=== PATIENT | male | born 1940 | race Caucasian/White ===

== ENCOUNTER 2019-03-10 13:05 | Observation (INO) | payer OTHER ==
[2019-03-10 13:19] VITALS: BMI 29.8
--- NOTE | 2019-03-10 13:26 | PDOC ---
History of Present Illness - General Chief Complaint: Syncope/Near Syncope Stated Complaint: SYNCOPE Time Seen by Provider: 03/10/19 13:11 History Source: Patient Exam Limitations: No Limitations - History of Present Illness Initial Comments: 78 year old male with PMH HTN, HLD, CAD s/p CABG (2003), lung CA s/p lobectomy ( remission since 2002), bladder CA (remission), COPD, DM BIBA to ED for pre- syncopal episode occurring just [employer]. Pt reported he was at Dr. Emmanuel's office, was walking with his walker, felt a lot of shaking of his extremities, felt lightheaded, and fell to the ground, hitting his head on the right side. He denied LOC, vomiting, neck pain, back pain, abdominal pain, chest pain, shortness of breath, palpitations, upper or lower extremity pain. Daughter (RN) at bedside reported in the last 3-[address] Ramirez (Cardio) has been adjusting his BP medications, increasing the ACEI, adding Aldactone, and increasing the Lasix. She reported she is not sure of the exact doses. She reported pt has had two similar episodes of lightheadedness and shaking in the last year, but has never actually fallen. ROS General: denied fever, chills, generalized weakness. HEENT: denied sore throat, rhinorrhea, ear pain. Cardiovascular: denied chest pain, palpitations, syncope, diaphoresis. Respiratory: denied shortness of breath, cough, sputum production, hemoptysis. Gastrointestinal: denied abdominal pain, nausea, vomiting, diarrhea, constipation, blood in stool. Genitourinary: denied dysuria, increased urinary frequency, hematuria, urinary incontinence, flank pain. Back: denied back pain. Musculoskeletal: denied joint pain, muscle pain, joint swelling. Neurological: denied headache, dizziness, numbness, tingling, weakness. Integumentary: denied rash, laceration, abrasion. Hematologic/Lymphatic: denied bruising or bleeding. PE Constitutional: Well-nourished, Well-developed, appearing stated age. Airway: intact Breathing: bilateral breath sounds Circulation: 2+ carotid pulse B/L HEENT: head is normocephalic, atraumatic. No facial bones tenderness to palpation. No marley sign. No raccoon eyes. EOMI. PERRLA. Neck: supple. Full ROM. no midline c-spine tenderness to palpation. No step offs. Cardiovascular: regular heart rhythm. no murmurs. no pericardial friction rub. Chest wall: No tenderness to palpation of anterior chest wall. No deformity to anterior chest wall. Respiratory: clear to auscultation bilaterally. no crackles, rhonchi or wheezing. no stridor. Gastrointestinal: soft, nontender. normal bowel sounds. no rebound, guarding, masses. No ecchymoses. Back: no midline T-spine or L-spine tenderness to palpation. No step offs. Pelvis: lower extremities equal in length without external rotation. No hip tenderness to palpation. Extremities: peripheral pulses intact. 1+ pitting edema to bilateral LE. Neurological: CN 2-12 grossly intact. moves all four extremities. Psych: awake, alert, oriented x3. follows commands. answers questions appropriately. Past History - Past Medical History Allergies/Adverse Reactions: Allergies Allergy/AdvReac Type Severity Reaction Status Date / Time Cephalosporins Allergy Verified 03/10/19 13:19 codeine Allergy Verified 03/10/19 13:19 Home Medications: Ambulatory Orders Atorvastatin Ca [Lipitor] 10 mg PO HS 12/29/13 Budesonide/Formeterol Fumarate [SYMBICORT 160/4.5mcg -] 1 inh PO BID 12/29/13 Escitalopram Oxalate [Lexapro -] 10 mg PO DAILY 12/29/13 Glipizide [Glipizide ER] 5 mg PO BID 12/29/13 Latanoprost 0.005% Eye Drops [Xalatan 0.005% Eye Drops -] 1 drop OU HS 12/29/13 Metoprolol Succinate [Toprol XL -] 0 mg PO DAILY 12/29/13 Ramipril [Altace] 0 mg PO DAILY 12/29/13 Ranolazine [Ranexa] 500 mg PO BID 12/29/13 Tiotropium [place] [Spiriva] 1 inh PO DAILY 12/29/13 Clopidogrel Bisulfate [Clopidogrel] 75 mg PO DAILY #0 01/01/14 Mv-Mn/FA/Lycopene/Lut/Hb#178 [Zay Multi For Men Tablet] 1 each PO DAILY #0 09/09 Dexlansoprazole [Dexilant] 30 mg PO ONCE 09/03/15 Guar Gum [Benefiber] 1 each PO HS 09/03/15 Furosemide [Lasix] 20 mg PO DAILY 03/10/19 Spironolactone [Aldactone] 25 mg PO DAILY 03/10/19 - Psycho Social/Smoking Cessation Hx Smoking History: Former smoker Have you smoked in the past 12 months: No If you are a former smoker, when did you quit?: 1991 Information on smoking cessation initiated: No Hx Alcohol Use: No Drug/Substance Use Hx: No Substance Use Type: None *Physical Exam - Vital Signs Last Vital Signs Temp Pulse Resp BP Pulse Ox 97.8 F 68 18 135/72 94 L 03/10/19 13:11 03/10/19 13:11 03/10/19 13:11 03/10/19 13:11 03/10/19 13:11 ED Treatment Course - LABORATORY CBC & Chemistry Diagram: 03/10/19 13:30 03/10/19 13:30 - RADIOLOGY Radiology Studies Ordered: Category Date Time Status CHEST PA & LAT [RAD] Stat Radiology 03/10/19 13:24 Ordered Medical Decision Making - Medical Decision Making 78 year old male with above PMH presented to ED for pre-syncopal episode associated with fall with head injury. Initial Vital Signs Temp Pulse Resp BP Pulse Ox 97.8 F 68 18 135/72 94 L 03/10/19 13:11 03/10/19 13:11 03/10/19 13:11 03/10/19 13:11 03/10/19 13:11 Afebrile. No tachycardia. No tachypnea. Hypertensive. Borderline hypoxia on room air. Labs ordered: CBC, CMP, troponin, BNP, TSH, UA/UC Imaging ordered: CXR, pelvis XR, CT head, CT cervical spine Medications ordered: none EKG performed at 1310: rate 68, regular rhythm, normal axis, QTc 467, RBBB, no acute ST changes -Similar to EKG performed 09/03/18 - RBBB present. 03/10/19 14:38 Laboratory Last Values WBC 7.8 K/mm3 (4.0-10.0) 03/10/19 13:30 RBC 4.41 M/mm3 (4.00-5.60) 03/10/19 13:30 Hgb 14.2 GM/dL (11.7-16.9) 03/10/19 13:30 Hct 41.4 % (35.4-49) 03/10/19 13:30 MCV 93.9 fl (80-96) 03/10/19 13:30 MCH 32.2 pg (25.7-33.7) 03/10/19 13:30 MCHC 34.3 g/dl (32.0-35.9) 03/10/19 13:30 RDW 14.5 % (11.9-15.9) 03/10/19 13:30 Plt Count 215 K/MM3 (134-434) 03/10/19 13:30 MPV 8.1 fl (7.5-11.1) 03/10/19 13:30 Absolute Neuts (auto) 6.3 K/mm3 (1.5-8.0) 03/10/19 13:30 Neutrophils % 80.7 % (42.8-82.8) 03/10/19 13:30 Lymphocytes % 9.4 % (8-40) 03/10/19 13:30 Monocytes % 7.1 % (3.8-10.2) 03/10/19 13:30 Eosinophils % 2.0 % (0-4.5) 03/10/19 13:30 Basophils % 0.8 % (0-2.0) 03/10/19 13:30 Nucleated RBC % 0 % (0-0) 03/10/19 13:30 PT with INR 12.10 SEC (9.7-13.0) 03/10/19 13:30 INR 1.03 (0.83-1.09) 03/10/19 13:30 PTT (Actin FS) 31.9 SECONDS (25.2-36.5) 03/10/19 13:30 Sodium 139 mmol/L (136-145) 03/10/19 13:30 Potassium 5.3 mmol/L (3.5-5.1) H 03/10/19 13:30 Chloride 105 mmol/L (98-107) 03/10/19 13:30 Carbon Dioxide 28 mmol/L (21-32) 03/10/19 13:30 Anion Gap 6 MMOL/L (8-16) L 03/10/19 13:30 BUN 27.5 mg/dL (7-18) H 03/10/19 13:30 Creatinine 1.3 mg/dL (0.55-1.3) 03/10/19 13:30 Est GFR (CKD-EPI)AfAm 60.15 03/10/19 13:30 Est GFR (CKD-EPI)NonAf 51.90 03/10/19 13:30 Random Glucose 168 mg/dL (74-106) H 03/10/19 13:30 Calcium 9.1 mg/dL (8.5-10.1) 03/10/19 13:30 Phosphorus 3.1 mg/dL (2.5-4.9) 03/10/19 13:30 Magnesium 2.1 mg/dL (1.8-2.4) 03/10/19 13:30 Total Bilirubin 0.5 mg/dL (0.2-1) 03/10/19 13:30 AST 20 U/L (15-37) 03/10/19 13:30 ALT 33 U/L (13-61) 03/10/19 13:30 Alkaline Phosphatase 97 U/L (45-117) 03/10/19 13:30 Troponin I < 0.02 ng/ml (0.00-0.05) 03/10/19 13:30 B-Natriuretic Peptide 189.8 pg/ml (5-450) 03/10/19 13:30 Total Protein 6.8 g/dl (6.4-8.2) 03/10/19 13:30 Albumin 3.7 g/dl (3.4-5.0) 03/10/19 13:30 TSH 3.04 uIU/ml (0.358-3.74) D 03/10/19 13:30 No leukocytosis. No anemia. Mild hyperkalemia, will observe. Troponin undetectable. TSH wnl. 03/10/19 14:43 CXR report: Name: BALWINDER KEMP DEPARTMENT OF RADIOLOGY Phys: Brook Gallegos RESIDENT : 1940 Age: 78 Sex: M [facility] Acct: [id number] Loc: [address] Exam Date: 03/10/19 Status: [place] [id number] Unit Number: [id number] EXAM#: TYPE/EXAM: RESULT: [id number] RAD/CHEST PA LAT Chest X-Ray: Indication: Syncopal left-sided Prior: January 2018 Procedure: PA and lateral view of the chest were performed. Findings: As noted on prior study patient is undergone prior median sternotomy. No bony abnormalities are identified. Cardiac silhouette is at the upper limits of normal.. There is no evidence of pneumothorax, contusion, or pleural effusion. No focal infiltrate or other active pulmonary process is identified. IMPRESSION: No evidence of active pulmonary disease. Loi Villegas M.D. Diplomate, [place] [employer] CAQ, Neuroradiology CAQ, Interventional Radiology 03/10/19 14:52 Urine Test Results Urine Color Dk yellow 03/10/19 14:00 Urine Appearance Clear 03/10/19 14:00 Urine pH 5.5 (5.0-8.0) 03/10/19 14:00 Ur Specific Steen 1.022 (1.010-1.035) 03/10/19 14:00 Urine Protein Trace (NEGATIVE) 03/10/19 14:00 Urine Glucose (UA) Negative (NEGATIVE) 03/10/19 14:00 Urine Ketones Negative (NEGATIVE) 03/10/19 14:00 Urine Blood Negative (NEGATIVE) 03/10/19 14:00 Urine Nitrite Negative (NEGATIVE) 03/10/19 14:00 Urine Bilirubin Negative (NEGATIVE) 03/10/19 14:00 Ur Leukocyte Esterase 1+ (NEGATIVE) H 03/10/19 14:00 WBC 8 Bacteria <1 Asymptomatic Do not suspect UTI 03/10/19 15:13 Pelvis XR report: Name: BALWINDER KEMP DEPARTMENT OF RADIOLOGY Phys: Brook Gallegos RESIDENT : 1940 Age: 78 Sex: M [facility] Acct: [id number] Loc: [address] Exam Date: 03/10/19 Status: [place] [address] Unit Number: [id number] EXAM#: TYPE/EXAM: RESULT: [id number] RAD/PELVIS X-ray pelvis: Indication: Status post fall with pelvic pain Prior: None Procedure: Single view of the pelvis performed. Findings: Single view of the pelvis shows pelvic ring to appear grossly intact with no evidence of fracture or joint diastases. Femoral heads are well-seated within the acetabula. IMPRESSION: No gross fracture or dislocation seen. Loi Villegas M.D. Diplomate, [place] [employer] CAQ, Neuroradiology CAQ, Interventional Radiology Reported By: Loi Villegas MD [id number] 03/10/19 15:36 Pt seen and examined by Dr. Oro, Cardiology, wrote a note and recommended orthostatic vital signs, continue Lipitor 40 qd, Vascepa 2 bid, Plavix 75 qd, Toprol XL 50 qd, Rabexa 1000 bid, hold Lasix 20 qd, ramipril 10 qd and Aldactone 25 qd pending hemodynamic stability 03/10/19 15:51 CT head report and CT cervical spine report: Name: BALWINDER KEMP DEPARTMENT OF RADIOLOGY Phys: Brook Gallegos RESIDENT; Lauren Finn MD : 1940 Age: 78 Sex: M [facility] Acct: [id number] Loc: [address] Exam Date: 03/10/19 Status: [place] [id number] Unit Number: [id number] EXAM#: TYPE/EXAM : RESULT: [id number] CT/HEAD CT WITHOUT CONTRAST [id number] CT/CERVICAL SPINE CT W /O CONTR Status post fall. CT scan of the brain. A noncontrast CT scan of the brain was performed. Compared to prior CT scan of the head dated 12/28/2007 There is generalized volume loss with moderate to marked ventricular dilatation and marked periventricular microvascular ischemic changes are present No mass lesion, gross acute infarct or intracranial hemorrhage are identified. Visualized paranasal sinuses and mastoid air cells are well aerated. Calcification of the cavernous carotid arteries are noted. The calvarium is intact . Impression: Generalized volume loss and marked periventricular chronic microvascular ischemic disease changes. No mass lesion, gross acute infarct or intracranial hemorrhage are identified. The calvarium is intact CT scan of the cervical spine without intravenous contrast Coronal and sagittal reconstruction images were obtained. No gross fracture, subluxation or prevertebral soft tissue swelling is seen. No jumped facets are identified. There is fusion of the posterior elements at C2-C3 level. C3-C4 mild to moderate central disc bulge/ disc osteophyte complex and bilateral uncovertebral hypertrophy moderately narrowing the right foramen. Moderate to marked bilateral facet hypertrophy. Visualized portion of the airway appears unremarkable. No gross enlarged lymph nodes are identified. Lung windows at the thoracic inlet demonstrates COPD changes IMPRESSION: See discussion above The alignment is satisfactory. No gross fracture or subluxation is seen. Fusion of C2 and C3 posterior elements with multilevel bilateral facet hypertrophy. C3-C4 mild to moderate disc osteophyte complex and bilateral uncovertebral hypertrophy moderately narrowing the right foramen. Reported By: Yulissa Bhagat MD 03/10/19 1542 Pt to be admitted for pre-syncope, will have his medications largely changed, would benefit from observation. Discharge - Discharge Information Problems reviewed: Yes Clinical Impression/Diagnosis: Pre-syncope, Fall Condition: Stable - Admission Yes - Follow up/Referral Referrals: ON STAFF,NOT [Non Staff, Medical] - - Patient Discharge Instructions - Post Discharge Activity
--- NOTE | 2019-03-10 13:55 | PDOC ---
Attending Attestation - Resident Resident Name: Brook Gallegos - ED Attending Attestation I have performed the following: I have examined & evaluated the patient, The case was reviewed & discussed with the resident, I agree w/resident's findings & plan - HPI HPI: 03/10/19 13:57 78 YOM with h/o HTN, HLD, CAD s/p 5V CABG, lung ca/ s/p lobectomy presenting with near syncope, at Dr Lezama office for check up where he was walking with walker. +shaking, +dizziness/lightheadedness and fell to the ground, hit his head on right side. No LOC, vomiting, neck pain, back pain, abdominal pain, chest pain, shortness of breath, palpitations, upper or lower extremity pain. Recent adjustments in medications ~3-4 months ago with cards Dr Hung, where he was increased on his JOSE LUIS-I, aldactone added and lasix uptitrated. There have been prior episodes of lightheadedness and shakes, but no falls/frequent falls. - Physicial Exam PE: 03/10/19 13:57 Agree with the resident's HPI and PE as documented in the electronic medical record. NAD, well appearing, EOMI, PERRL, nl conjunctiva, anicteric; neck supple. lungs clear, RRR, abdomen soft nontender. no rebound, guarding. Back nontender. RODRIGUEZ x4, no focal neuro deficits. No peripheral edema. normal color for ethnicity , WW. - Medical Decision Making 03/10/19 13:58 Vital Signs Temp Pulse Resp BP Pulse Ox 97.8 F 68 18 135/72 93 L 03/10/19 13:11 03/10/19 13:11 03/10/19 13:11 03/10/19 13:11 03/10/19 13:19 DDx. syncope: considered interval abnormalities including short QTC or long QT syndrome, WPW, conduction abnormality, [place], ACS, PE, electrolyte disturbances, metabolic derangement. seizure, [employer] lesion, CVA, ICH. vasovagal episode. Neuro exam is nonfocal, not consistent with CVA or primary neurologic abnormality. VS reviewed, wnl. sats borderline at 93%. normal sats. Laboratory results are within normal limits, troponin is negative, ECG is unremarkable similar to previous, follow-up on urine cultures, UA is preliminarily borderline with 1+ leuk esterase and [address] head/C spine to eval for bleed/injury/fx negative for injuries seen by cards here, Dr Oro: 04/21/2018 Echo: Normal LV size with mild LVH and normal fxn, garde II diastolic dysfunction, normal atrial sizes, normal RV size and fxn, tr MR, mild- mod TR, mild NV RVSP 53 mmHg 01/08/2018 No ischemia, LVEF 65% post Lexiscan and 63% rest Likely symptomatic from postural dizziness and polypharmacy also on JOSE LUIS inhibitor Aldactone and Lasix which has been uptitrated were adjusted over the past couple weeks. Baseline diastolic dysfunction based on prior echo records. Does have a history of postural hypotension. Cardiology recommended holding on Lasix ramipril and Aldactone and continue to monitor. Patient may have a risk of CHF and fluid overload admit to tele, near syncope, observation given h/o CHF and now overdiuresis contributing to orthostasis changes 03/10/19 14:55 03/10/19 17:44 Heart Score/ECG Review #1 ECG reviewed & interpreted by me at: 13:10 General ECG Interpretation: Sinus Rhythm, Normal Rate Compared to previous ECG there are: No significant change 03/10/19 13:55 EKG normal sinus rhythm at 68 bpm, wide QRS, RBBB, ST and T wave segments and morphology normal. Nonspecific T wave abnormalities
[2019-03-10 13:59] LABS: BASO % 0.8 % (0-2.0); HEMATOCRIT 41.4 % (35.4-49); HEMOGLOBIN 14.2 GM/dL (11.7-16.9); LYMPH % 9.4 % (8-40); MCH 32.2 pg (25.7-33.7); MCHC 34.3 g/dl (32.0-35.9); MEAN CELL VOLUME 93.9 fl (80-96); MEAN PLT VOLUME 8.1 fl (7.5-11.1); MONO % 7.1 % (3.8-10.2); NEUT % 80.7 % (42.8-82.8); PLATELET COUNT 215 K/MM3 (134-434); RBC 4.41 M/mm3 (4.00-5.60); RDW 14.5 % (11.9-15.9); WHITE BLOOD COUNT 7.8 K/mm3 (4.0-10.0)
[2019-03-10 14:22] LABS: ALBUMIN 3.7 g/dl (3.4-5.0); BILIRUBIN,TOTAL 0.5 mg/dL (0.2-1); BLOOD UREA NITROGEN 27.5 mg/dL (7-18); CALCIUM 9.1 mg/dL (8.5-10.1); CREATININE 1.3 mg/dL (0.55-1.3); POTASSIUM 5.3 mmol/L (3.5-5.1); TOT PROT 6.8 g/dl (6.4-8.2)
[2019-03-10 14:23] LABS: INR 1.03 (0.83-1.09); PROTHROMBIN TIME (PATIENT) 12.1 SEC (9.7-13.0)
[2019-03-10 14:25] LABS: ACTIVATED PTT 31.9 SECONDS (25.2-36.5)
[2019-03-10 14:29] LABS: MAGNESIUM 2.1 mg/dL (1.8-2.4); N-TERMINAL BNP 189.8 pg/ml (5-450); PHOSPHOROUS 3.1 mg/dL (2.5-4.9)
[2019-03-10 14:50] LABS: EPI CELLS 0.8 /HPF (0-5/HPF); HYALINE CASTS 3 /lpf (0-8); PH,URINE 5.5 (5.0-8.0); URINE APPEARANCE CLEAR; URINE BACTERIA 0.3 /hpf (NEGATIVE); URINE BILIRUBIN NEGATIVE (NEGATIVE); URINE COLOR DK YELLOW; URINE GLUCOSE (UA) NEGATIVE (NEGATIVE); URINE KETONE NEGATIVE (NEGATIVE); URINE LEUK ESTERASE 1+ (NEGATIVE); URINE NITRITE NEGATIVE (NEGATIVE); URINE PROTEIN TRACE (NEGATIVE); URINE RBC 2 /hpf (0-4); URINE WBC 8 /hpf (0-5)
--- NOTE | 2019-03-10 15:22 | CON.CARD ---
Consult Consult Specialty:: Cardiology Reason for Consultation:: Near syncope - History of Present Illness Chief Complaint: Near syncope History of Present Illness: 78 YOM with h/o HTN, HLD, CAD s/p CABG (BEST->mLAD, SVG->dRCA, free radial->RPDA ), diastolic dysfunction, amaurosis fugax, lung ca/ s/p lobectomy, CKD, postural dizziness and hypotension presenting with near syncope, at Dr Lezama office for check up where he was walking with walker assistance. +shaking, reports positional dizziness/lightheadedness, legs gave out and fell to the ground, hit his head on right side. No LOC, vomiting, neck pain, back pain, abdominal pain, chest pain, shortness of breath, palpitations, upper or lower extremity pain. Did not eat breakfast today. Last visit with Dr Hung 02/13/2019. - History Source History Provided By: Patient Limitations to Obtaining History: No Limitations - Alcohol/Substance Use Hx Alcohol Use: No - Smoking History Smoking history: Former smoker Have you smoked in the past 12 months: No If you are a former smoker, when did you quit?: 1991 Home Medications - Allergies Allergies/Adverse Reactions: Allergies Allergy/AdvReac Type Severity Reaction Status Date / Time Cephalosporins Allergy Verified 03/10/19 13:19 codeine Allergy Verified 03/10/19 13:19 - Home Medications Home Medications: Ambulatory Orders Atorvastatin Ca [Lipitor] 10 mg PO HS 12/29/13 Budesonide/Formeterol Fumarate [SYMBICORT 160/4.5mcg -] 1 inh PO BID 12/29/13 Escitalopram Oxalate [Lexapro -] 10 mg PO DAILY 12/29/13 Glipizide [Glipizide ER] 5 mg PO BID 12/29/13 Latanoprost 0.005% Eye Drops [Xalatan 0.005% Eye Drops -] 1 drop OU HS 12/29/13 Metoprolol Succinate [Toprol XL -] 0 mg PO DAILY 12/29/13 Ramipril [Altace] 0 mg PO DAILY 12/29/13 Ranolazine [Ranexa] 500 mg PO BID 12/29/13 Tiotropium [place] [Spiriva] 1 inh PO DAILY 12/29/13 Clopidogrel Bisulfate [Clopidogrel] 75 mg PO DAILY #0 01/01/14 Mv-Mn/FA/Lycopene/Lut/Hb#178 [Zay Multi For Men Tablet] 1 each PO DAILY #0 09/09 Dexlansoprazole [Dexilant] 30 mg PO ONCE 09/03/15 Guar Gum [Benefiber] 1 each PO HS 09/03/15 Furosemide [Lasix] 20 mg PO DAILY 03/10/19 Spironolactone [Aldactone] 25 mg PO DAILY 03/10/19 Review of Systems - Review of Systems Neurological: reports: Dizziness, Unsteady Gait Vital Signs: Vital Signs Temperature 97.8 F 03/10/19 13:11 Pulse Rate 68 03/10/19 13:11 Respiratory Rate 18 03/10/19 13:11 Blood Pressure 135/72 03/10/19 13:11 O2 Sat by Pulse Oximetry (%) 93 L 03/10/19 13:19 Constitutional: Yes: No Distress, Calm Neck: Yes: Supple Respiratory: Yes: Regular, CTA Bilaterally Gastrointestinal: Yes: Normal Bowel Sounds, Soft Cardiovascular: Yes: Regular Rate and Rhythm JVD: No Carotid Bruit: No Heart Sounds: Yes: S1, S2 Murmur: Yes: Systolic Murmur, Grade 1 Edema: No - Other Data Labs, Other Data: CBC, BMP 03/10/19 13:30 03/10/19 13:30 INR, PTT INR 1.03 (0.83-1.09) 03/10/19 13:30 Troponin, BNP 03/10/19 03/10/19 13:30 13:30 Troponin I < 0.02 B-Natriuretic Peptide 189.8 Troponin, BNP 03/10/19 03/10/19 13:30 13:30 Troponin I < 0.02 B-Natriuretic Peptide 189.8 NSR @ 68 LAD, RBBB Ejection Fraction %: LVEF > or = 40 % Imaging - Results Chest X-ray: Report Reviewed (NAD) Problem List - Problems (1) Postural hypotension Code(s): I95.1 - ORTHOSTATIC HYPOTENSION (2) Coronary artery disease Code(s): I25.10 - ATHSCL HEART DISEASE OF [place] CORONARY ARTERY W/O ANG PCTRS Qualifiers: Coronary Disease-Associated Artery/Lesion type: [place] artery [place] vs. transplanted heart: [place] heart Associated angina: without angina Qualified Code(s): I25.10 - Atherosclerotic heart disease of [place] coronary artery without angina pectoris (3) Diastolic dysfunction with chronic heart failure Code(s): I50.32 - CHRONIC DIASTOLIC (CONGESTIVE) HEART FAILURE (4) S/P CABG (coronary artery bypass graft) Code(s): Z95.1 - PRESENCE OF AORTOCORONARY BYPASS GRAFT (5) Pre-syncope Code(s): R55 - SYNCOPE AND COLLAPSE (6) Hypertensive heart disease Code(s): I11.9 - HYPERTENSIVE HEART DISEASE WITHOUT HEART FAILURE (7) Hyperlipidemia Code(s): E78.5 - HYPERLIPIDEMIA, UNSPECIFIED Qualifiers: Hyperlipidemia type: pure hypercholesterolemia Qualified Code(s): E78.00 - Pure hypercholesterolemia, unspecified; E78.0 - Pure hypercholesterolemia (8) CKD (chronic kidney disease) Code(s): N18.9 - CHRONIC KIDNEY DISEASE, UNSPECIFIED Qualifiers: Chronic kidney disease stage: stage 2 (mild) Qualified Code(s): N18.2 - Chronic kidney disease, stage 2 (mild) Assessment/Plan 04/21/2018 Echo: Normal LV size with mild LVH and normal fxn, garde II diastolic dysfunction, normal atrial sizes, normal RV size and fxn, tr MR, mild- mod TR, mild [place] RVSP 53 mmHg 01/08/2018 No ischemia, LVEF 65% post Lexiscan and 63% rest 1. Postural dizziness and hypotension 2. LV diastolic dysfunxtion 3. CAD s/p CABG 4. Labile HTN with h/o postural hypotension 5. Type 2 DM 6. Hyperlipidemia 7. CKD 8. H/o amaurosis fugax 9. H/o lung ca s/p resection 10. H/o GERD 11. Mild ao dilatation 3.8 cm P:1. Check orthostatic VS 2. Continue Lipitor 40 qd, Vascepa 2 bid, Plavix 75 qd, Toprol XL 50 qd, Ranexa 1000 bid and ramipril 10 qd, hold Lasix 20 qd and Aldactone 25 qd pending resolution of orthostasis 3. PT and gait training 4. Thank you for consultative opportunity
--- NOTE | 2019-03-10 17:49 | HP ---
<Bette Blevins - Last Filed: 03/10/19 18:20> Hospitalist Medicine Admission 78 y/o M with h/o HTN, HLD, COPD (not on home 02), CAD s/p CABG (BEST->mLAD, SVG ->dRCA, free radial->RPDA. on plavix, no stents), diastolic dysfunction, amaurosis fugax, lung ca/ s/p lobectomy, bladder CA- in remission, CKD, DM2, postural dizziness and hypotension presenting with near syncope, at Dr Lezama office. States that at 11AM, he was ambulating from his car into the office, when he felt uneasy. However it was when he was walking to the elevator in the building, using his walker, when he knew he "was going to go down." Was witnessed by the nurse. States that he hit the R side of his head, but is unsure whether he had LOC. At the time, had a shaking sensation in his extremities, was not a/w incontinence, palpitations, chest pain, nausea, or other sx. Was helped up, drank water and came to the ED for further evaluation via ambulance. Had recent changes in his cardiac meds. Last visit with Dr Ramirez 02/13/2019. Denies vomiting, neck pain, back pain, abdominal pain, chest pain, shortness of breath, palpitations, upper or lower extremity pain. No recent illnesses. Per family, these episodes occur frequently at home, and pt improves with leg elevation, salted chips. Seen in ED by Dr. Oro. PMH: as above PsxH: as above, bladder sx meds: [facility] only has aldactone picked up recently. rest meds per cardio, others need verification. 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 used to smoke 2-3 ppd but quit many yrs ago. Does not use home 02. Used to drink heavily in past. no drug use. lives independently near family. does ADL's on own and uses a walker to ambulate. Allergies Cephalosporins Allergy (Verified 03/10/19 13:19) codeine Allergy (Verified 03/10/19 13:19) HOME MEDICATIONS: Home Medications Medication Instructions Recorded Atorvastatin Ca [Lipitor] 10 mg PO HS 12/29/13 Budesonide/Formeterol Fumarate 1 inh PO BID 12/29/13 [SYMBICORT 160/4.5mcg -] Escitalopram Oxalate [Lexapro -] 10 mg PO DAILY 12/29/13 Glipizide [Glipizide ER] 5 mg PO BID 12/29/13 Latanoprost 0.005% Eye Drops 1 drop OU HS 12/29/13 [Xalatan 0.005% Eye Drops -] Metoprolol Succinate [Toprol XL -] 0 mg PO DAILY 12/29/13 Ramipril [Altace] 0 mg PO DAILY 12/29/13 Ranolazine [Ranexa] 500 mg PO BID 12/29/13 Tiotropium [place] [Spiriva] 1 inh PO DAILY 12/29/13 Clopidogrel Bisulfate [Clopidogrel] 75 mg PO DAILY #0 01/01/14 Mv-Mn/FA/Lycopene/Lut/Hb#178 [Zay 1 each PO DAILY #0 01/01/14 Multi For Men Tablet] Dexlansoprazole [Dexilant] 30 mg PO ONCE 09/03/15 Guar Gum [Benefiber] 1 each PO HS 09/03/15 Furosemide [Lasix] 20 mg PO DAILY 03/10/19 Spironolactone [Aldactone] 25 mg PO DAILY 03/10/19 PHYSICAL EXAMINATION Vital Signs - 24 hr 03/10/19 03/10/19 03/10/19 13:11 13:19 17:18 Temperature 97.8 F Pulse Rate 68 Pulse Rate [ 74 Apical] Respiratory 18 18 Rate Blood Pressure 135/72 Blood Pressure 150/73 [Left Arm] O2 Sat by Pulse 94 L 93 L 94 L Oximetry (%) GENERAL: pleasant, in NAD. resting in bed HEENT: NCAT, PERRLA neck: supple. no JVD noted cardio: S1, S2 RRR. no r/g. +systolic murmur appreciated, heard at LUSB pulm: decreased breath sounds. no accessory m usage abdomen: soft, nondistended, nontender LE: 2+ pulses, 1+ pitting edema. neuro: intelligence research specialist 2-12 grossly intact Laboratory Tests 03/10/19 03/10/19 03/10/19 13:30 13:30 13:30 WBC 7.8 Hgb 14.2 Hct 41.4 Plt Count 215 PT with INR 12.10 INR 1.03 PTT (Actin FS) 31.9 Sodium 139 Potassium 5.3 H Chloride 105 Carbon Dioxide 28 Anion Gap 6 L BUN 27.5 H Creatinine 1.3 Random Glucose 168 H Calcium 9.1 Urine Casts (Auto) U Epithel Cells (Auto) 03/10/19 03/10/19 13:30 14:00 Anion Gap Calcium Troponin I < 0.02 Urine Color Dk yellow Urine Appearance Clear Urine pH 5.5 Ur Specific University 1.022 Urine Protein Trace Urine Glucose (UA) Negative Urine Ketones Negative Urine Blood Negative Urine Nitrite Negative Urine Bilirubin Negative Urine Urobilinogen 1.0 Ur Leukocyte Esterase 1+ H Urine WBC (Auto) 8 Urine RBC (Auto) 2 Urine Casts (Auto) 3 U Epithel Cells (Auto) 0.8 Urine Bacteria (Auto) 0.3 Per cardio: NSR @ 68 LAD, RBBB. qtc 467ms Ejection Fraction %: LVEF > or = 40 % 04/21/2018 Echo: Normal LV size with mild LVH and normal fxn, grade II diastolic dysfunction, normal atrial sizes, normal RV size and fxn, tr MR, mild- mod TR, mild WA RVSP 53 mmHg 01/08/2018 No ischemia, LVEF 65% post Lexiscan and 63% rest Imaging 03/10/19: CT head, C-spine CT: generalized vol loss, chronic microvascular ischemic changes, no acute changes. no gross fx, subluxation, etc. fusion of posterior elements at C2-C3. C3-C4 mild to moderate central disc bulge/ osteophyte complex and bilateral uncovertebral hypertrophy moderately narrowing the R foramen. moderate to marked bilateral facet hypertrophy. lung windows at the thoracic inlet demonstrate COPD changes. 03/10/19: Hip XR: (-) 03/10/19: CXR: s/p median sternotomy. no acute changes. ASSESSMENT/PLAN: 78 y/o M with h/o HTN, HLD, COPD (not on home 02), CAD s/p CABG (BEST->mLAD, SVG ->dRCA, free radial->RPDA. on plavix, no stents), diastolic dysfunction, amaurosis fugax, lung ca/ s/p lobectomy, bladder CA- in remission, CKD, DM2, postural dizziness and hypotension presenting with near syncope, at Dr Lezama office. #Near syncope #postural hypotension and dizziness -may have been 2/2 diuretics, cardiac medication changes, dehydration -per cardio, will hold diuretics: aldactone and lasix -CTH, c-spine (-) -f/u orthostatic VS -f/u carotid duplex. ECHO done 03/2018, repeat not needed -Cardio consulted: Dr. Oro -tele monitoring -PT #LV diastolic dysfnc #CAD s/p CABG #HTN -c/w vascepa 2g BID, plavix 75mg qd, toprol XL 50mg qd , Ranexa 1000 bid and ramipril 10 qd -hold lasix 20mg qd, aldactone 25mg qd until orthostasis resolves -cardio: Dr. Oro #T2DM -f/u a1c -ISS, BGM ACHS #HLD -c/w lipitor 40mg qd -f/u lipid profile #COPD -not on home 02 -currently not in exacerbation -c/w symbicort, spiriva #hx glaucoma, cataract -c/w latanoprost drops #F/E/N await orthostatics prior to admin IVF continue to follow lytes salt controlled/diabetic diet/cholesterol controlled #PPX DVT: SCD's #Dispo admit to tele-obs Visit type - Emergency Visit Emergency Visit: Yes ED Registration Date: 03/10/19 Care time: The patient presented to the Emergency Department on the above date and was hospitalized for further evaluation of their emergent condition. - New Patient This patient is new to me today: Yes Date on this admission: 03/10/19 - Critical Care Critical Care patient: No <Jae Boudreaux - Last Filed: 03/11/19 08:02> Seen and examined; I agree with the above documentation as outlined by the resident aside from as supplemented by myself below. All historical and busby PE findings along side diagnostics independently verified. Case was discussed at length with the resident team. All questions were answered. 04/21/2018 Echo: Normal LV size with mild LVH and normal fxn, garde II diastolic dysfunction, normal atrial sizes, normal RV size and fxn, tr MR, mild- mod TR, mild WA RVSP 53 mmHg 01/08/2018 No ischemia, LVEF 65% post Lexiscan and 63% rest 10 sys ROS done and negative aside from HPI HOME MEDICATIONS: Home Medications Medication Instructions Recorded Atorvastatin Ca [Lipitor] 10 mg PO HS 12/29/13 Budesonide/Formeterol Fumarate 1 inh PO BID 12/29/13 [SYMBICORT 160/4.5mcg -] Escitalopram Oxalate [Lexapro -] 10 mg PO DAILY 12/29/13 Glipizide [Glipizide ER] 5 mg PO BID 12/29/13 Latanoprost 0.005% Eye Drops 1 drop OU HS 12/29/13 [Xalatan 0.005% Eye Drops -] Metoprolol Succinate [Toprol XL -] 100 mg PO DAILY 12/29/13 Ramipril [Altace] 10 mg PO DAILY 12/29/13 Ranolazine [Ranexa] 500 mg PO BID 12/29/13 Tiotropium [place] [Spiriva] 1 inh PO DAILY 12/29/13 Clopidogrel Bisulfate [Clopidogrel] 75 mg PO DAILY #0 01/01/14 Mv-Mn/FA/Lycopene/Lut/Hb#178 [Zay 1 each PO DAILY #0 01/01/14 Multi For Men Tablet] Dexlansoprazole [Dexilant] 30 mg PO ONCE 09/03/15 Guar Gum [Benefiber] 1 each PO HS 09/03/15 Furosemide [Lasix] 20 mg PO DAILY 03/10/19 Spironolactone [Aldactone] 25 mg PO DAILY 03/10/19 Aspirin [Aspirin EC] 81 mg PO DAILY 03/11/19 Ranitidine HCl 150 mg PO HS 03/11/19 PHYSICAL EXAMINATION Vital Signs - 24 hr 03/10/19 03/10/19 03/10/19 13:11 13:19 17:18 Temperature 97.8 F Pulse Rate 68 Pulse Rate [ 74 Apical] Pulse Rate [ Left side Sitting] Pulse Rate [ Left side Supine] Respiratory 18 18 Rate Blood Pressure 135/72 Blood Pressure 150/73 [Left Arm] Blood Pressure [Left side Sitting] Blood Pressure [Left side Supine] O2 Sat by Pulse 94 L 93 L 94 L Oximetry (%) 03/10/19 03/10/19 03/10/19 19:31 20:04 21:19 Temperature 98.3 F Pulse Rate Pulse Rate [ 64 Apical] Pulse Rate [ 67 Left side Sitting] Pulse Rate [ 62 Left side Supine] Respiratory 18 16 Rate Blood Pressure Blood Pressure 110/68 [Left Arm] Blood Pressure 114/82 [Left side Sitting] Blood Pressure 114/81 [Left side Supine] O2 Sat by Pulse 95 93 L Oximetry (%) 03/10/19 03/11/19 03/11/19 23:00 01:55 02:02 Temperature 97.7 F 97.1 F L Pulse Rate 67 63 Pulse Rate [ Apical] Pulse Rate [ Left side Sitting] Pulse Rate [ Left side Supine] Respiratory 16 16 16 Rate Blood Pressure 120/66 112/62 Blood Pressure [Left Arm] Blood Pressure [Left side Sitting] Blood Pressure [Left side Supine] O2 Sat by Pulse 93 L 93 L Oximetry (%) GENERAL: Awake, alert, and fully oriented, in no acute distress. HEAD: Normal with no signs of trauma. EYES: Pupils equal, round and reactive to light, extraocular movements intact, sclera anicteric, conjunctiva clear. No lid lag. EARS, NOSE, THROAT: Ears normal, nares patent, oropharynx clear without exudates. Moist mucous membranes. NECK: Normal range of motion, supple without lymphadenopathy, JVD, or masses. LUNGS: Breath sounds equal, clear to auscultation bilaterally. No wheezes, and no crackles. No accessory muscle use. HEART: Regular rate and rhythm, normal S1 and S2 without murmur, rub or gallop. ABDOMEN: Soft, nontender, not distended, normoactive bowel sounds, no guarding, no rebound, no masses. No hepatomegaly or splenomegaly. MUSCULOSKELETAL: Normal range of motion at all joints. No bony deformities or tenderness. No CVA tenderness. UPPER EXTREMITIES: 2+ pulses, warm, well-perfused. No cyanosis. No clubbing. No peripheral edema. LOWER EXTREMITIES: 2+ pulses, warm, well-perfused. No calf tenderness. No peripheral edema. NEUROLOGICAL: Cranial nerves II-XII intact. Normal speech. Normal gait. PSYCHIATRIC: Cooperative. Good eye contact. Appropriate mood and affect. SKIN: Warm, dry, normal turgor, no rashes or lesions noted, normal capillary refill. Laboratory Results - last 24 hr 03/10/19 03/10/19 03/10/19 13:30 13:30 13:30 WBC 7.8 RBC 4.41 Hgb 14.2 Hct 41.4 MCV 93.9 MCH 32.2 MCHC 34.3 RDW 14.5 Plt Count 215 MPV 8.1 Absolute Neuts (auto) 6.3 Neutrophils % 80.7 Lymphocytes % 9.4 Monocytes % 7.1 Eosinophils % 2.0 Basophils % 0.8 Nucleated RBC % 0 PT with INR 12.10 INR 1.03 PTT (Actin FS) 31.9 Sodium 139 Potassium 5.3 H Chloride 105 Carbon Dioxide 28 Anion Gap 6 L BUN 27.5 H Creatinine 1.3 Est GFR (CKD-EPI)AfAm 60.15 Est GFR (CKD-EPI)NonAf 51.90 POC Glucometer Random Glucose 168 H Hemoglobin A1c % Calcium 9.1 Phosphorus Magnesium Total Bilirubin 0.5 AST 20 ALT 33 Alkaline Phosphatase 97 Troponin I B-Natriuretic Peptide Total Protein 6.8 Albumin 3.7 TSH Urine Color Urine Appearance Urine pH Ur Specific University Urine Protein Urine Glucose (UA) Urine Ketones Urine Blood Urine Nitrite Urine Bilirubin Urine Urobilinogen Ur Leukocyte Esterase Urine WBC (Auto) Urine RBC (Auto) Urine Casts (Auto) U Epithel Cells (Auto) Urine Bacteria (Auto) Blood Type Antibody Screen 03/10/19 03/10/19 03/10/19 13:30 13:30 13:30 WBC RBC Hgb Hct MCV MCH MCHC RDW Plt Count MPV Absolute Neuts (auto) Neutrophils % Lymphocytes % Monocytes % Eosinophils % Basophils % Nucleated RBC % PT with INR INR PTT (Actin FS) Sodium Potassium Chloride Carbon Dioxide Anion Gap BUN Creatinine Est GFR (CKD-EPI)AfAm Est GFR (CKD-EPI)NonAf POC Glucometer Random Glucose Hemoglobin A1c % Calcium Phosphorus 3.1 Magnesium 2.1 Total Bilirubin AST ALT Alkaline Phosphatase Troponin I < 0.02 B-Natriuretic Peptide 189.8 Total Protein Albumin TSH 3.04 D Urine Color Urine Appearance Urine pH Ur Specific University Urine Protein Urine Glucose (UA) Urine Ketones Urine Blood Urine Nitrite Urine Bilirubin Urine Urobilinogen Ur Leukocyte Esterase Urine WBC (Auto) Urine RBC (Auto) Urine Casts (Auto) U Epithel Cells (Auto) Urine Bacteria (Auto) Blood Type O NEGATIVE Antibody Screen Negative 03/10/19 03/10/19 03/10/19 14:00 22:00 22:39 WBC RBC Hgb Hct MCV MCH MCHC RDW Plt Count MPV Absolute Neuts (auto) Neutrophils % Lymphocytes % Monocytes % Eosinophils % Basophils % Nucleated RBC % PT with INR INR PTT (Actin FS) Sodium Potassium Chloride Carbon Dioxide Anion Gap BUN Creatinine Est GFR (CKD-EPI)AfAm Est GFR (CKD-EPI)NonAf POC Glucometer 155 Random Glucose Hemoglobin A1c % 9.0 H Calcium Phosphorus Magnesium Total Bilirubin AST ALT Alkaline Phosphatase Troponin I B-Natriuretic Peptide Total Protein Albumin TSH Urine Color Dk yellow Urine Appearance Clear Urine pH 5.5 Ur Specific University 1.022 Urine Protein Trace Urine Glucose (UA) Negative Urine Ketones Negative Urine Blood Negative Urine Nitrite Negative Urine Bilirubin Negative Urine Urobilinogen 1.0 Ur Leukocyte Esterase 1+ H Urine WBC (Auto) 8 Urine RBC (Auto) 2 Urine Casts (Auto) 3 U Epithel Cells (Auto) 0.8 Urine Bacteria (Auto) 0.3 Blood Type Antibody Screen 03/11/19 05:48 WBC RBC Hgb Hct MCV MCH MCHC RDW Plt Count MPV Absolute Neuts (auto) Neutrophils % Lymphocytes % Monocytes % Eosinophils % Basophils % Nucleated RBC % PT with INR INR PTT (Actin FS) Sodium Potassium Chloride Carbon Dioxide Anion Gap BUN Creatinine Est GFR (CKD-EPI)AfAm Est GFR (CKD-EPI)NonAf POC Glucometer 159 Random Glucose Hemoglobin A1c % Calcium Phosphorus Magnesium Total Bilirubin AST ALT Alkaline Phosphatase Troponin I B-Natriuretic Peptide Total Protein Albumin TSH Urine Color Urine Appearance Urine pH Ur Specific University Urine Protein Urine Glucose (UA) Urine Ketones Urine Blood Urine Nitrite Urine Bilirubin Urine Urobilinogen Ur Leukocyte Esterase Urine WBC (Auto) Urine RBC (Auto) Urine Casts (Auto) U Epithel Cells (Auto) Urine Bacteria (Auto) Blood Type Antibody Screen ASSESSMENT/PLAN: Patient presents from Dr. Emmanuel's office with an episode of near syncope. No current symptoms or focal neuro symptoms. Following up the orthostatic vital signs and will FU with CV recs. Already seen by Dr. Oro-appreciate expert input. The patient is stable in terms of all other complaints and doesn't have current CP, etc. He has a complicated medical history involving lung cancer, DM , HTN, resulting CKD, HLD, and CAD s/p CABG alongside diastolic dysfunction observed on prior echo. Agree with problem list and plan as documented in resident note. Full Code ATTENDING PHYSICIAN STATEMENT I saw and evaluated the patient. I reviewed the resident's note and discussed the case with the resident. I agree with the resident's findings and plan as documented. SUBJECTIVE: OBJECTIVE: ASSESSMENT AND PLAN:
[2019-03-10] MEDS: PANTOPRAZOLE 20 MG TABLET (FP) PO SCH (20:05)
[2019-03-10] MEDS ORDERED: LATANOPROST 0.005% OPHTH SOLN 2.5ML BOTTLE OU SCH (22:00)
[2019-03-10] MEDS ORDERED: ATORVASTATIN CA 40 MG TABLET (FP) PO SCH (22:00)
[2019-03-10] MEDS: OMEGA-3 ACID ETHYL ESTERS (FATTY-ACIDS) 1 GM CAPSULE (FP) PO SCH (22:41)
[2019-03-10] MEDS: RANOLAZINE E.R. 1,000 MG TABLET (FP) PO SCH (22:42)
[2019-03-10] MEDS: INSULIN SLIDING SCALE (NOVOLOG) 1 VIAL SQ SCH (22:43)
[2019-03-10] MEDS: BUDESONIDE/FORMETEROL FUMARATE 160/4.5 mcg INHALER IH SCH (22:44)
[2019-03-10] MEDS ORDERED: PT OWN MED DRAWER 7, Y5N ONE (23:25)
[2019-03-11] MEDS: INSULIN SLIDING SCALE (NOVOLOG) 1 VIAL SQ SCH ×2 (06:04→11:14)
[2019-03-11 07:28] LABS: BASO % 0.5 % (0-2.0); EOS % 3.3 % (0-4.5); HEMATOCRIT 41.1 % (35.4-49); HEMOGLOBIN 13.7 GM/dL (11.7-16.9); LYMPH % 12.8 % (8-40); MCH 31.4 pg (25.7-33.7); MCHC 33.3 g/dl (32.0-35.9); MEAN CELL VOLUME 94.2 fl (80-96); MEAN PLT VOLUME 8.3 fl (7.5-11.1); MONO % 9.5 % (3.8-10.2); NEUT % 73.9 % (42.8-82.8); PLATELET COUNT 212 K/MM3 (134-434); RBC 4.37 M/mm3 (4.00-5.60); RDW 14.4 % (11.9-15.9); WHITE BLOOD COUNT 7.8 K/mm3 (4.0-10.0)
[2019-03-11 07:37] LABS: ALBUMIN 3.4 g/dl (3.4-5.0); BILIRUBIN,TOTAL 0.6 mg/dL (0.2-1); BLOOD UREA NITROGEN 22.4 mg/dL (7-18); CALCIUM 9.4 mg/dL (8.5-10.1); CREATININE 1.3 mg/dL (0.55-1.3); MAGNESIUM 2.1 mg/dL (1.8-2.4); PHOSPHOROUS 3.4 mg/dL (2.5-4.9); POTASSIUM 4.6 mmol/L (3.5-5.1); TOT PROT 6.4 g/dl (6.4-8.2)
[2019-03-11] MEDS ORDERED: INSULIN SLIDING SCALE (NOVOLOG) 1 VIAL SQ ONE (07:53)
[2019-03-11 08:35] VITALS: PULSE 69
[2019-03-11] MEDS ORDERED: CLOPIDOGREL BISULFATE 75 MG TABLET (FP) PO SCH (10:00)
[2019-03-11] MEDS ORDERED: RAMIPRIL 5 MG CAPSULE (FP) PO SCH (10:00)
[2019-03-11] MEDS ORDERED: TIOTROPIUM BROMIDE 2.5 MCG (SPIRIVA) RESPIMAT INHALER IH SCH (10:00)
[2019-03-11] MEDS: RANOLAZINE E.R. 1,000 MG TABLET (FP) PO SCH (10:20)
[2019-03-11] MEDS: PANTOPRAZOLE 20 MG TABLET (FP) PO SCH (10:20)
[2019-03-11] MEDS: BUDESONIDE/FORMETEROL FUMARATE 160/4.5 mcg INHALER IH SCH (10:22)
--- NOTE | 2019-03-11 10:22 | EKG ---
Test Reason : Blood Pressure : / mmHG Vent. Rate : 068 BPM Atrial Rate : 068 BPM P-R Int : 188 ms QRS Dur : 148 ms QT Int : 440 ms P-R-T Axes : 047 -50 031 degrees QTc Int : 467 ms NORMAL SINUS RHYTHM WITH SINUS ARRHYTHMIA LEFT AXIS DEVIATION RIGHT BUNDLE BRANCH BLOCK ABNORMAL ECG WHEN COMPARED WITH ECG OF 04-SEP-2015 09:20, NO SIGNIFICANT CHANGE WAS FOUND Confirmed by VEDA MYLES, OLIVA ([id number]) on 03/11/2019 10:21:45 AM Referred By: Confirmed By:OLIVA MCCOLLUM MD
[2019-03-11] MEDS ORDERED: PT OWN MED DRAWER 7, Y5N ONE ×2 (10:30→10:33)
[2019-03-11] MEDS: OMEGA-3 ACID ETHYL ESTERS (FATTY-ACIDS) 1 GM CAPSULE (FP) PO SCH (10:32)
--- NOTE | 2019-03-11 12:47 | DS ---
Physical Examination Vital Signs: Vital Signs Temperature 97.8 F 03/11/19 08:34 Pulse Rate 69 03/11/19 08:34 Respiratory Rate 18 03/11/19 08:34 Blood Pressure 127/69 03/11/19 08:34 O2 Sat by Pulse Oximetry (%) 93 L 03/11/19 02:02 Constitutional: Yes: Well Nourished, No Distress, Calm Eyes: Yes: EOM Intact HENT: Yes: Atraumatic Neck: Yes: Supple Cardiovascular: Yes: Regular Rate and Rhythm Respiratory: Yes: CTA Bilaterally Gastrointestinal: Yes: Soft. No: Tenderness Edema: No Neurological: Yes: Alert, Oriented Labs: CBC, BMP 03/11/19 06:10 03/11/19 06:10 Discharge Summary Problems reviewed: Yes Reason For Visit: PRE SYNCOPE Current Active Problems CKD (chronic kidney disease) (Acute) Coronary artery disease (Acute) Diastolic dysfunction with chronic heart failure (Acute) Fall (Acute) Hyperlipidemia (Acute) Hypertensive heart disease (Acute) Postural hypotension (Acute) Pre-syncope (Acute) S/P CABG (coronary artery bypass graft) (Acute) Hospital Course: 78M who presented with presyncope from Dr. Emmanuel's office. Work up negative. Lasix and spironolactone held. I spoke to the patient's daughter Sirisha Loja who is a telemetry nurse here and discussed everything with her. I also spoke to Dr. Oro over the phone who agreed patient ok to be discharged. He will go back on all his home meds except spironolactone which was recently started per daughter and lasix until he sees his consumer safety inspector Dr. Ramirez. Daughter states he had this before and lasix was held and she thinks he cant tolerate lasix. Patient's metoprolol was cut in half from 100mg to 50mg while hospitalized and ranexa increased to 1000mg from 500mg but cardiology recommended he go back on his home doses. Patient has follow up with PMD at the [facility]. I walked the patient about 100 feet today without any assistance and he did well without any symptoms upon standing from seated position or while walking. No events on telemetry. labs WNL. Condition: Improved - Instructions Diet, Activity, Other Instructions: Continue a low sodium diet. Do not take the lasix or the spironolactone also known as aldactone until you see your consumer safety inspector Dr. Ramirez. Try to see him in the next week or so. If you have worsening of your symptoms please go to the nearest emergency room. Please follow up with your primary care doctor for post hospitalization discharge follow up. When you get up from a seated position do it slowly and make sure you have something to hold on to. It was a pleasure meeting and caring for you. Referrals: Anna Marie Ramirez MD [Staff Physician] - 1 Week (follow up with medication management) Disposition: HOME - Home Medications Comprehensive Discharge Medication List: Ambulatory Orders Atorvastatin Ca [Lipitor] 10 mg PO HS 12/29/13 Budesonide/Formeterol Fumarate [SYMBICORT 160/4.5mcg -] 1 inh PO BID 12/29/13 Escitalopram Oxalate [Lexapro -] 10 mg PO DAILY 12/29/13 Glipizide [Glipizide ER] 5 mg PO BID 12/29/13 Latanoprost 0.005% Eye Drops [Xalatan 0.005% Eye Drops -] 1 drop OU HS 12/29/13 Metoprolol Succinate [Toprol XL -] 100 mg PO DAILY 12/29/13 Ramipril [Altace] 10 mg PO DAILY 12/29/13 Ranolazine [Ranexa] 500 mg PO BID 12/29/13 Tiotropium [place] [Spiriva] 1 inh PO DAILY 12/29/13 Clopidogrel Bisulfate [Clopidogrel] 75 mg PO DAILY #0 01/01/14 Mv-Mn/FA/Lycopene/Lut/Hb#178 [Zay Multi For Men Tablet] 1 each PO DAILY #0 09/09 Dexlansoprazole [Dexilant] 30 mg PO ONCE 09/03/15 Guar Gum [Benefiber] 1 each PO HS 09/03/15 Aspirin [Aspirin EC] 81 mg PO DAILY 03/11/19 [place]-3 Acid Ethyl Esters [Lovaza -] 2 gm PO BID cap 03/11/19 Ranitidine HCl 150 mg PO HS 03/11/19 This patient is new to me today: Yes Date on this admission: 03/11/19 Emergency Visit: Yes ED Registration Date: 03/10/19 Care time: The patient presented to the Emergency Department on the above date and was hospitalized for further evaluation of their emergent condition. Critical Care patient: No - Discharge Referral Referred to [facility] Med [facility].C[facility] No
[2019-03-11 13:52] VITALS: BP 115/60; TEMP 98.3
== END 2019-03-11 14:07 | disposition home or self-care (01) ==
LOC: JER 13:05 → JERBED 16:51 → J4S 20:24
PROVIDERS: ADMIT Internal Medicine; ATTEND Internal Medicine
PROC: 3E013VG Introduction of Insulin into Subcutaneous Tissue, Percutaneous Approach (ICD-10-PCS; principal; 2019-03-10)
PROC: 3E0F7GC Introduction of Other Therapeutic Substance into Respiratory Tract, Via Natural or Artificial Opening (ICD-10-PCS; 2019-03-10)
DX: R55 Syncope and collapse (principal); E11.22 Type 2 diabetes mellitus with diabetic chronic kidney disease; I50.32 Chronic diastolic (congestive) heart failure; I13.0 Hypertensive heart and chronic kidney disease with heart failure and stage 1 through stage 4 chronic kidney disease, or unspecified chronic kidney disease; I12.9 Hypertensive chronic kidney disease with stage 1 through stage 4 chronic kidney disease, or unspecified chronic kidney disease; N18.2 Chronic kidney disease, stage 2 (mild); I25.10 Atherosclerotic heart disease of native coronary artery without angina pectoris; Z79.84 Long term (current) use of oral hypoglycemic drugs; I95.1 Orthostatic hypotension; E78.5 Hyperlipidemia, unspecified; Z95.1 Presence of aortocoronary bypass graft; Z90.2 Acquired absence of lung [part of]; Z88.5 Allergy status to narcotic agent; Z88.8 Allergy status to other drugs, medicaments and biological substances; Z87.891 Personal history of nicotine dependence; Z85.118 Personal history of other malignant neoplasm of bronchus and lung; Z85.51 Personal history of malignant neoplasm of bladder
CPT/HCPCS: 36415; 70450-TC; 71046-TC-FY; 72125-TC; 72170-TC-FY; 80053; 80061; 81003; 82962; 83036; 83721; 83735; 83880; 84100; 84443; 84484; 85025; 85610; 85730; 86850; 86900; 86901; 87086; 93005; 93010; 94640; 96372; 99285-25; G0378